=== PATIENT | female | born 1980 | race Caucasian/White ===

== ENCOUNTER → 2019-06-15 18:16 | Outpatient (CLI) | payer OTHER, SELFPAY ==
--- NOTE | ~2019-06-15 | XR_ITS ---
XR lumbar spine 2-3V 06/15/2019 18:55 Indication: Low back pain Procedure: 3 views lumbar spine Comparison: No prior studies for comparison. Findings: Vertebral body heights are maintained. No fracture, subluxation or dislocation. No evidence for spondylolisthesis. Mild levocurvature of the lumbar spine. Pedicles intact. Sacral foramen are s ymmetric. There are cholecystectomy clips. Impression: 1: No significant abnormality of the lumbar spine. Reviewed, dictated and finalized at location A. Impression: 1: No significant abnormality of the lumbar spine.
--- NOTE | ~2019-06-15 | XR_ITS ---
XR hip RT min 2V, XR pelvis 1-2V, XR hip LT min 2V 06/15/2019 18:55 (accession [id number]), 06/15/2019 18:56 (accession [id number]), 0 18:55 (accession [id number]) Indication: Low back and bilateral hip pain Procedure: AP pelvis and 3 views of each hip Comparison: No prior studies for comparison. Findings: Pelvic rings are intact. Sacral foramen are symmetric. No acute fracture or traumatic malal ignment. No significant joint space narrowing. No focal soft tissue abnormality. No radiopaque foreig n bodies. Impression: 1: No acute fracture. Reviewed, dictated and finalized at location A. Impression: 1: No acute fracture. Impression: 1: No acute fracture. Impression: 1: No acute fracture.
== END ==
PROVIDERS: PCP Family Medicine; Visit Provider Family Medicine
DX: M54.5 Low back pain (principal); M25.551 Pain in right hip
CPT/HCPCS: 72100; 72170; 73502

== ENCOUNTER 2019-08-02 15:45 | Emergency (ER) | payer SELFPAY ==
--- NOTE | ~2019-08-02 | CT_ITS ---
EXAMINATION: CT abdomen pelvis w con DATE: 08/02/2019 17:26 INDICATION: Abdominal pain TECHNIQUE: Computed tomography (CT) of the abdomen and pelvis was performed with 100 mL Omnipaque-350 intravenous contrast. Automated exposure control and iterative reconstruction technique were employe d. The dose-length product was 174.02 mGy-cm. COMPARISON: 12/31/2015 FINDINGS: Lung bases are clear. Heart size is normal. No pericardial or pleural effusion. Cholecystectomy clips at the gallbladder fossa. Liver, spleen, pancreas, bilateral adrenal glands and kidneys are normal. Normal appendix. No abnormal bowel wall thickening or obstruction. Bladder is normal. The uterus is n ot identified and has likely been surgically resected. 2.7 cm peripherally enhancing right ovarian cy st. Left ovary is normal. No free intraperitoneal gas or fluid. No pathologically enlarged abdominal or pelvic lymphadenopathy. Bones are unremarkable. IMPRESSION: 1. 2.7 cm right ovarian cyst. No other acute intra-abdominal/pelvic process. Reviewed, dictated and finalized at location A.
[2019-08-02 16:07] VITALS: BP 119/74; PULSE 93; RESP 16; TEMP 36.8; O2SAT 99
--- NOTE | 2019-08-02 16:14 | ED.ABDPAIN ---
HPI - Abdominal Pain General Chief Complaint: Abdominal Pain Stated Complaint: ABD PAIN x4d Time Seen by Provider: 08/02/19 15:55 Source: RN notes reviewed History of Present Illness HPI narrative: Patient presents emerged department from home for abdominal pain. Patient states pain began 4 days ago. Pain is located in the bilateral lower abdomen worse on the right. Described as aching in nature and does not radiate. States associated nausea vomiting diarrhea. Denies any fevers or chills chest pain shortness of breath or any other symptoms. Patient states that she has not taken any pain medication today. Went to her PCP and was referred to the emergency department for rule out appendicitis Related Data Home Medications Medication Instructions Recorded Confirmed acetaminophen-codeine tablet 08/02/19 dicyclomine 10 mg PO BID 08/02/19 famotidine 20 mg PO BID 08/02/19 gabapentin 08/02/19 lamotrigine 08/02/19 levetiracetam 08/02/19 omeprazole 40 mg PO DAILY 08/02/19 oxybutynin chloride 5 mg PO DAILY 08/02/19 sertraline 50 mg PO DAILY 08/02/19 Allergies Allergy/AdvReac Type Severity Reaction Status Date / Time NSAIDS (Non-Steroidal AdvReac Unknown Ulcers Verified 07/03/17 17:52 Anti-Inflamma STRAWBERRIES Allergy Unknown Anaphylactic Uncoded 06/13/16 14:42 Shock Review of Systems Review of Systems: Narrative: Gen.: Denies fevers or chills ENT: Denies congestion Respiratory: Denies shortness of breath or cough CV: Denies chest pain or palpitations GI: See HPI denies burning, urgency, frequency or hematuria Musculoskeletal: Denies back pain or muscle pain Neuro: Denies numbness, tingling, weakness or focal weakness Skin: Denies rash Except as documented, all other systems reviewed and negative PMF Past Medical History Medical History (Updated 08/02/19 @ 17:44 by Kareem Montes DO) Irritable bowel syndrome Seizures Family History Family History (Updated 09/13/15 @ 23:21 by DOCTOR UNKNOWN) Mother Family history of bipolar disorder Family history of malignant neoplasm Family history of diabetes mellitus in first degree relative Father Patient's father is in good health Sibling Patient's sister is in good health Social History Social History Smoking status: Current every day smoker Alcohol intake: never Exam Narrative: Exam Narrative: APPEARANCE: No acute distress, nontoxic, resting in bed HEENT: Normocephalic, atraumatic, OMM RESPIRATORY: No respiratory distress, clear to auscultation bilaterally with no rhonchi wheezing or rales CARDIOVASCULAR: RRR s murmur ABDOMINAL: Soft, nondistended, diffusely tender to palpation with increased tenderness in the right lower quadrant no rebound or guarding MUSCULOSKELETAl: Moves all extremities. No clubbing, cyanosis or edema. NEURO: Awake and alert. Following commands, speech normal, no focal deficits SKIN:: Warm, dry. Normal Color PSYCHIATRIC: Normal affect/mood Course Course Emergency Course: Patient states that they are feeling much better at this time. States abdominal pain has improved. Repeat abdominal exam shows the patient's abdomen to be soft with no surgical abdomen present. Discussed with patient results of workup and diagnosis. Discussed need for follow-up with primary care physician, reasons to return to the emergency department in proper use of medication. Patient understands and agrees to current treatment plan. The patient does have Tylenol threes that she can take at home for pain Vital Signs Vital signs: Vital Signs Temperature 98.3 F 08/02/19 16:07 Pulse Rate 93 08/02/19 16:07 Respiratory Rate 16 08/02/19 16:07 Blood Pressure 119/74 08/02/19 16:07 Pulse Oximetry 99 08/02/19 16:07 Temperature 98.3 F 08/02/19 16:07 Pulse Rate 93 08/02/19 16:07 Respiratory Rate 16 08/02/19 16:07 Blood Pressure 119/74 08/02/19 16:07
[2019-08-02] MEDS: SODIUM CHLORIDE 0.9% IV 1,000 ML 999 ML IV CONT (16:35)
[2019-08-02 16:43] LABS: Basophils Absolute Auto 0.1 K/mm3 (0.0-0.1); Basophils Percent Auto 0.6 % (0.2-1.2); Eosinophils Absolute Auto 0.1 K/mm3 (0-0.3); Eosinophils Percent Auto 0.8 % (0-4.4); Hematocrit 48.8 % (37.0-47.0); Hemoglobin 16.3 g/dL (12.0-15.0); Immature Granulocyte Absolute 0.04 K/mm3 (0.00-0.031); Immature Granulocyte Percent A 0.5 % (0-0.5); Lymphocytes Absolute Auto 2.62 K/mm3 (0.9-3.2); Lymphocytes Percent Auto 29.7 % (18.3-44.2); Mean Corpuscular HGB Conc 33.4 g/dl (32-36); Mean Corpuscular Hemoglobin 28.7 pg (26-34); Mean Corpuscular Volume 85.9 fl (80-100); Mean Platelet Volume 12.3 fl (7.4-10.4); Monocytes Absolute Auto 0.6 K/mm3 (0.1-0.6); Monocytes Percent Auto 6.5 % (2.6-8.5); Neutrophils Absolute Auto 5.5 K/mm3 (1.3-6.7); Neutrophils Percent Auto 61.9 % (45.5-73.1); Platelet Count Result 167 k/mm3 (150-375); Red Blood Count 5.68 M/mm3 (4.2-5.4); Red Cell Distribution Width 12.7 % (11.5-14.5); White Blood Count 8.8 K/mm3 (4.5-10.0)
[2019-08-02 16:47] LABS: Add Urine Microscopic? YES; Appearance Urine Clear (Clear); Bilirubin Urine Negative (Negative); Blood Urine Negative (Negative); Color Urine Yellow (Yellow); Glucose Urine UA Negative (Negative); Ketones Urine Trace mg/dL (Negative); Leukocyte Esterase Ur Negative LEU/UL (Negative); Mucus Urine Rare /lpf; Nitrate Urine Negative (Negative); Protein Urine 1+ mg/dL (Negative); RBC Urine 0-2 /hpf (0-2); Specific Grav Ur 1.025 (1.001-1.035); Squamous Epithelial Cell Urine Many /hpf (Few); WBC Urine 0-3 /hpf
[2019-08-02 16:56] LABS: Alanine Aminotransferase 16 U/L (4-35); Albumin Level 4.9 g/dL (3.5-5.1); Alkaline Phosphatase 71 U/L (38-126); Aspartate Amino Transferase 22 U/L (14-36); Bilirubin,Total 0.5 mg/dL (0.2-1.3); Blood Urea Nitrogen 12 mg/dL (7-17); Calcium 9.3 mg/dL (8.4-10.2); Carbon Dioxide 25 mmol/L (22-30); Chloride 103 mmol/L (98-107); Estimated CRCL calculation 57 ml/min; Estimated Glomerular Filt Rate > 60; Glucose 84 mg/dL (65-105); Lipase 57 U/L (23-300); Potassium 3.7 mmol/L (3.4-5.0); Sodium 137 mmol/L (137-145)
[2019-08-02 18:01] VITALS: BP 112/74; PULSE 70; RESP 16; O2SAT 99
== END 2019-08-02 18:02 | disposition home or self-care (01) ==
PROVIDERS: Emergency Provider Emergency Medicine; PCP Family Medicine
DX: N83.201 Unspecified ovarian cyst, right side (principal); K58.9 Irritable bowel syndrome, unspecified; F17.200 Nicotine dependence, unspecified, uncomplicated
CPT/HCPCS: 36415; 74177; 80053; 81001; 83690; 85025; 96361; 96374; 99284; J0131; J7030; Q9967

== ENCOUNTER 2020-05-21 15:11 | Emergency (ER) | payer SELFPAY ==
--- NOTE | ~2020-05-21 | CT_ITS ---
EXAMINATION: CT cervical spine wo con DATE: 05/21/2020 16:37 INDICATION: Head injury and neck pain TECHNIQUE: Computed tomography (CT) of the cervical spine was performed without intravenous contrast. The dose-length product (DLP) was 100.72 mGy-cm. Automated exposure control and iterative reconstruc tion technique were employed. COMPARISON: None FINDINGS: There is no fracture, dislocation, or subluxation. The vertebral body heights, alignment, a nd intervertebral disc spaces are normal. The paravertebral soft tissues are unremarkable. The odonto id is intact. IMPRESSION: 1. No acute osseous abnormality. Reviewed, dictated and finalized at location A.
[2020-05-21 15:16] VITALS: BP 105/59; PULSE 56; RESP 16; TEMP 36.8; O2SAT 99
[2020-05-21 15:27] VITALS: BP 105/59; PULSE 56; RESP 16; TEMP 36.8; O2SAT 99
[2020-05-21 15:29] VITALS: RESP 16; O2SAT 99
--- NOTE | 2020-05-21 16:50 | ED.GENADULT ---
HPI - General Adult General Chief complaint: Unspecified <NIKKO Lindsey Last Filed: 05/21/20 16:54> Stated complaint: throat injury <NIKKO Lindsey Last Filed: 05/21/20 16:54> Time Seen by Provider: 05/21/20 15:43 <NIKKO Lindsey Last Filed: 05/21/20 16:54> Source: patient <NIKKO Lindsey Last Filed: 05/21/20 16:54> Mode of arrival: ambulatory <NIKKO Lindsey Last Filed: 05/21/20 16:54> Limitations: no limitations <NIKKO Lindsey Last Filed: 05/21/20 16:54> History of Present Illness HPI narrative: Patient is a 40-year-old female who presents with anterior neck pain after tripping forward and striking her neck on her lawn more handle patient notes that it happened yesterday patient notes aching pain worse with swallowing and talking patient denies other injuries or complaints presents in no distress <NIKKO Lindsey Last Filed: 05/21/20 16:54> Related Data Home medications: Home Medications Medication Instructions Recorded Confirmed acetaminophen-codeine tablet 08/02/19 dicyclomine 10 mg PO BID 08/02/19 famotidine 20 mg PO BID 08/02/19 gabapentin 08/02/19 lamotrigine 08/02/19 levetiracetam 08/02/19 omeprazole 40 mg PO DAILY 08/02/19 oxybutynin chloride 5 mg PO DAILY 08/02/19 sertraline 50 mg PO DAILY 08/02/19 <NIKKO Lindsey Last Filed: 05/21/20 16:54> Allergies/adverse reactions: Allergies Allergy/AdvReac Type Severity Reaction Status Date / Time NSAIDS (Non-Steroidal AdvReac Unknown Ulcers Verified 07/03/17 17:52 Anti-Inflamma STRAWBERRIES Allergy Unknown Anaphylactic Uncoded 06/13/16 14:42 Shock <NIKKO Lindsey Last Filed: 05/21/20 16:54> Review of Systems Review of Systems: All systems reviewed & are unremarkable except as noted in HPI and below <NIKKO Lindsey Last Filed: 05/21/20 16:54> [facility] Past Medical History Medical History: Medical History Irritable bowel syndrome Seizures <Emmanuel Arias PA-C - Last Filed: 05/21/20 16:54> Family History Family History: Family History (Updated 09/13/15 @ 23:21 by DOCTOR UNKNOWN) Mother Family history of bipolar disorder Family history of malignant neoplasm Family history of diabetes mellitus in first degree relative Father Patient's father is in good health Sibling Patient's sister is in good health <Emmanuel Arias PA-C - Last Filed: 05/21/20 16:54> Social History Social History: Social History Smoking status: Current every day smoker Alcohol intake: never Gender identity (if verbalized by the patient): Female <Emmanuel Arias PA-C - Last Filed: 05/21/20 16:54> Exam Narrative: Exam Narrative: GENERAL: Well-appearing, well-nourished, and in no acute distress. HEAD: Normocephalic, atraumatic. EYES: PERRLA and EOMI. ENT: Nares clear, no rhinorrhea or epistaxis. Mucous membranes moist. NECK: Supple. No adenopathy or masses. No stridor. Tenderness of the anterior neck no bruising or deformity noted CHEST: Clear to auscultation. No respiratory distress. No wheezes rales or rhonchi HEART: Regular rate and rhythm. No murmur heard. EXTREMITIES: Normal range of motion. No edema. SKIN: Warm, dry, no rash. NEURO: No focal deficits. Alert and oriented x3. Cranial nerves II through XII grossly intact. PSYCH: Normal mood and affect. <Emmanuel Arias PA-C - Last Filed: 05/21/20 16:54> Course Course Emergency Course: Patient in the room in no distress felt appropriate for outpatient reevaluation hemodynamically stable no distress will be referred to ENT and primary care for further evaluation <Emmanuel Arias PA-C - Last Filed: 05/21/20 16:54> Vital Signs Vital signs: Vital Signs Temperature 36.8 C /
[2020-05-21 17:15] VITALS: BP 118/75; PULSE 78; RESP 16; O2SAT 100
== END 2020-05-21 17:15 | disposition home or self-care (01) ==
PROVIDERS: Emergency Provider Emergency Medicine; PCP Family Medicine
DX: M54.2 Cervicalgia (principal); G40.909 Epilepsy, unspecified, not intractable, without status epilepticus; K58.9 Irritable bowel syndrome, unspecified
CPT/HCPCS: 72125; 99284